=== PATIENT | male | born 1955 ===

== ENCOUNTER 2023-11-06 09:56 | Outpatient (AMB) | payer MEDICARE, OTHER, SELFPAY ==
--- NOTE | 2023-11-06 09:58 | MHC.OFFVIS ---
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 He reports mild intermittent discomfort in his right knee. He denies any fevers or chills. He continues to walk for exercise. He also does upper body light weights at home. Medication List - Last Reconciled 11/06/23 by Feliciano Reno MD ezetimibe (Zetia) 10 mg PO DAILY famotidine 40 mg PO DAILY PFSH Surgical History (Updated 11/06/23 @ 10:24 by Greer Penny CMA) History of shoulder surgery (Unknown) Hx of total knee arthroplasty (~08/2018) Social History (Updated 11/06/23 @ 10:20 by Greer Penny CMA) Patient Tobacco Use Status: Never used Tobacco Physical Exam Const Other: Well-nourished well-developed very friendly male awake alert and oriented x3 in no acute distress Extrem Other: Bilateral lower extremity examination shows good capillary refill, no skin lesions noted, normal sensation light touch Right knee examination shows that the surgical incision is well healed, no erythema, full active extension and flexion to 120 degrees, as patella tracks well Results Reviewed Results Reviewed: X-rays of the patient's right knee show a total knee arthroplasty in good position with no signs of loosening, no acute bony abnormalities Assessment & Plan Assessment & Plan (1) Right knee pain: Code(s): M25.561 - Pain in right knee Plan Mr. Villalpando continues to do very well after undergoing right total knee replacement surgery on 08/29/2018. He will continue with his exercise program. He does know to take antibiotics before any dental work. He will contact me prior to his annual follow-up appointment should any questions or concerns arise. Feel free to call me at any time should questions regarding his orthopedic management arise. I spent 20 minutes in reviewing the patient's records and imaging studies, seeing the patient and documenting in the medical record. Orders: Orders XR knee RT 3V Today M25.561 - Pain in right knee Coding Level of Care Code Est Pt Level 2 (61234) Diagnoses Right knee pain M25.561
== END 2023-11-06 10:33 | disposition home or self-care (01) ==
PROVIDERS: PCP Internal Medicine; Visit Provider Orthopaedic Surgery
DX: M25.561 Pain in right knee (principal); Z96.651 Presence of right artificial knee joint
CPT/HCPCS: 99213

== ENCOUNTER 2023-11-06 14:29 | Outpatient (REF) | payer MEDICARE, OTHER, SELFPAY ==
--- NOTE | ~2023-11-06 | XR_ITS ---
EXAMINATION: XR KNEE, RIGHT CLINICAL INFORMATION: Pain in the right knee COMPARISON: None available. TECHNIQUE: Four views of the right knee. FINDINGS: There is a total knee arthroplasty in place. The components are in the usual position and are unchanged. There is no periprosthetic fracture or surrounding abnormal lucency. There is no effusion. The surrounding soft tissues are normal. . XR/XR knee RT 3V IMPRESSION: Right total knee arthroplasty without complication by x-ray.
== END 2023-11-06 14:30 | disposition home or self-care (01) ==
LOC: HO.HOSX 14:29
PROVIDERS: Visit Provider Orthopaedic Surgery
DX: M25.561 Pain in right knee (principal); Z96.651 Presence of right artificial knee joint
CPT/HCPCS: 73562; 99212

== ENCOUNTER 2024-11-05 10:27 | Outpatient (AMB) | payer MEDICARE, SELFPAY ==
--- NOTE | 2024-11-05 10:31 | MHC.OFFVIS ---
Vital Signs 11/05/24 10:38 Height 5 ft 8 in Weight 200 lb BMI 30.4 Intake Visit Reasons: ov-RT TKA 08/29/18 follow up Intake Note: Eugene is a 69 year old male who presents today for a follow up after undergoing a right total knee arthroplasty 08/29/2018. He reports mild intermittent discomfort in his right knee. He continues to hike for exercise. He does not take any medicines for his discomfort. Allergies No Known Allergies Allergy (Verified 11/05/24 10:38) Medication List - Last Reviewed 11/05/24 by JEANA Rico ezetimibe (Zetia) 10 mg PO DAILY famotidine 40 mg PO DAILY multivitamin 1 tab PO DAILY PFSH Surgical History (Updated 11/06/23 @ 10:24 by Greer Penny CMA) History of shoulder surgery (Unknown) Hx of total knee arthroplasty (~08/2018) Social History (Updated 11/06/23 @ 10:20 by Greer Penny CMA) Patient Tobacco Use Status: Never used Tobacco Physical Exam Vital Signs: BMI result Body Mass Index 30.4 Const Other: Well-nourished well-developed very friendly male awake alert and oriented x3 in no acute distress Extrem Other: Right knee examination shows that the surgical incision is well healed, no erythema, full active and flexion to 120 degrees, his patella tracks well Assessment & Plan Assessment & Plan (1) Right knee pain: Code(s): M25.561 - Pain in right knee Category: Medical Plan Mr. Villalpando continues to do well after undergoing right total knee replacement surgery on 08/29/2018. He will continue with his exercise program. He does know to take antibiotics before any dental work. He will contact me prior to his annual follow-up appointment should any questions or concerns arise. Feel free to call me at any time should questions regarding his orthopedic management arise. I spent 20 minutes in reviewing the patient's records and imaging studies, seeing the patient and documenting in the medical record. Coding Level of Care Code Est Pt Level 3 (79981) Complex EM visit Add On G2211 Diagnoses Right knee pain M25.561
[2024-11-05 10:38] VITALS: BMI 30.4
== END 2024-11-05 10:54 | disposition home or self-care (01) ==
PROVIDERS: PCP Internal Medicine; Visit Provider Orthopaedic Surgery
DX: M25.561 Pain in right knee (principal)
CPT/HCPCS: 99213; G2211

== ENCOUNTER → 2024-11-05 10:27 | Outpatient (BNVA) | payer MEDICARE, SELFPAY | PROVIDERS: PCP Internal Medicine; Visit Provider Orthopaedic Surgery | DX: M25.561 Pain in right knee (principal) | CPT/HCPCS: 99212 ==